=== PATIENT | male | born 1980 | race Hispanic/Latino ===

== ENCOUNTER 2022-10-26 10:56 | Emergency (ER) | payer MEDICAID ==
[~2022-10-26] VITALS: Ht 177.8 cm; Wt 84.8 kg
[2022-10-26 11:08] VITALS: BP 120/84
[2022-10-26] MEDS ORDERED: KETOROLAC 15MG/ML VIAL (15MG/ML) ONE (11:56)
[2022-10-26] MEDS ORDERED: 0.9% NACL 250ML 250 ML ONE (11:57)
[2022-10-26] MEDS ORDERED: DIAZEPAM 5 MG/ML 2 ML SYG ONE (11:57)
[2022-10-26] MEDS ORDERED: 0.9% NACL 250ML 250 ML IV ONE (12:00)
[2022-10-26] MEDS ORDERED: KETOROLAC 15MG/ML VIAL (15MG/ML) IV ONE (12:00)
[2022-10-26] MEDS ORDERED: DIAZEPAM 5 MG/ML 2 ML SYG IVP ONE (12:00)
[2022-10-26] MEDS ORDERED: CYCL10TA16 PO (12:32)
[2022-10-26] MEDS ORDERED: NAPR500T6 PO (12:32)
== END 2022-10-26 12:57 | disposition home or self-care (01) ==
LOC: EDH 10:56
DX: M62.838 Other muscle spasm (principal); Z79.1 Long term (current) use of non-steroidal anti-inflammatories (NSAID)
CPT/HCPCS: 99284; 96374; 96375; J3360; J1885; J7050